=== PATIENT | female | born 1945 | race Caucasian/White ===

== ENCOUNTER 2016-05-14 17:40 | Emergency (ER) | payer MEDICARE, OTHER, MEDICAID ==
[~2016-05-14] VITALS: Ht 157.5 cm; Wt 90.9 kg
[~2016-05-14 17:40] MED LIST: ASPIRIN E.C. 8181 MG PO; DETROL 2MG TAB2 MG PO; GLUCOPHAGE500 MG/TAB PO; KEPPRA1000 MG PO; LIPITOR 10MG10 MG PO; MYRBETR25MG PO; NORCO 325 MG-51 TAB PO; NORVASC 10MG10 MG PO; PRAVACHOL 20MG20 MG PO; PRILOSEC 20MG20 MG PO; PRINIVIL10 MG PO; RESTORIL 1515 MG/CAP PO; VOLTAREN GEL 1%1 TU TP; ZESTRIL 20MG TA20 MG PO
[2016-05-14 17:44] VITALS: TEMP 97
[2016-05-14 18:29] LABS: HEMATOCRIT 38.2 % (37.0-47.0); HEMOGLOBIN 12.3 g/dl (12.5-16.0); MEAN CELL VOLUME 92 fl (80.0-100.0); MEAN CORPUSCULAR HEMOGLOBIN 30 pg (27.0-31.0); MEAN CORPUSCULAR HGB CONC 32 g/dl (33.0-37.0); PLATELET COUNT 397 K/mm3 (130-400); RED BLOOD COUNT 4.17 M/mm3 (4.10-5.30); REDCELL DISTRIBUTION WIDTH-CV 12.4 % (11.5-14.5); WHITE BLOOD COUNT 17.4 K/mm3 (4.8-10.8)
[2016-05-14 18:32] LABS: ADD PATHOLOGY DIFF REVIEW NO
[2016-05-14 18:44] LABS: BAND 9 % (0-10); EOSINOPHIL 1 % (0-4); NEUTROPHILS 36 % (42.0-75.2); PLATELET ESTIMATE NORMAL (NORMAL); TOTAL CELLS COUNTED 100
[2016-05-14 18:45] LABS: ADJUSTED CALCIUM 9.1 mg/dL (8.4-10.2); ALANINE AMINOTRANSFERASE 25 U/L (9-52); ALBUMIN 4.3 gm/dL (3.5-5.0); ALKALINE PHOSPHATASE 84 U/L (50-136); ANION GAP 17 mmol/L (7-16); BILIRUBIN,TOTAL 0.7 mg/dL (0.0-1.0); BLOOD UREA NITROGEN 12 mg/dL (7-17); CALCIUM 9.3 mg/dL (8.4-10.2); CARBON DIOXIDE 22 mmol/L (22-30); CHLORIDE 101 mmol/L (98-107); CREATININE, serum 1.06 mg/dL (0.52-1.25); GLUCOSE 139 mg/dL (74-106); LIPASE 76 U/L (23-300); POTASSIUM 3.6 mmol/L (3.4-5.0); SODIUM 140 mmol/L (137-145); TOTAL PROTEIN 7.8 gm/dL (6.4-8.2)
[2016-05-14 18:48] LABS: PH 7 (5-8); SQUAMOUS EPITHELIAL 0-2 /hpf; URINE APPEARANCE Clear; URINE BACTERIA Rare /hpf; URINE BILIRUBIN Negative (NEGATIVE); URINE BLOOD Negative (NEGATIVE); URINE COLOR Straw; URINE GLUCOSE Negative (NEGATIVE); URINE KETONE Trace (NEGATIVE); URINE RBC 0-2 /hpf; URINE UROBILINOGEN Negative (NEGATIVE); URINE WBC 0-2 /hpf
[2016-05-14 18:53] LABS: ACETAMINOPHEN < 10 ug/mL (10-30); SALICYLATE < 1.0 mg/dL
[2016-05-14 18:57] LABS: AMPHETAMINE URINE NEGATIVE; BARBITURATES URINE NEGATIVE; BENZODIAZEPINES URINE POSITIVE; BUPRENORPHINE URINE NEGATIVE; METHADONE URINE NEGATIVE; OPIATES URINE NEGATIVE; OXYCODONE URINE NEGATIVE; PHENCYCLIDINE URINE NEGATIVE; PROPOXYPHENE URINE NEGATIVE; THC CANNABINOIDS URINE NEGATIVE
[2016-05-14 18:58] LABS: TROPONIN-I < 0.012 ng/mL (0.000-0.034)
[2016-05-14 19:35] VITALS: BP 186/138; PULSE 84
== END 2016-05-14 19:35 | disposition short-term general hospital (02) ==
LOC: COL.ER 17:40
PROVIDERS: Emergency Medicine
DX: I61.1 Nontraumatic intracerebral hemorrhage in hemisphere, cortical (principal); G81.91 Hemiplegia, unspecified affecting right dominant side; R47.02 Dysphasia; I10 Essential (primary) hypertension; Z86.73 Personal history of transient ischemic attack (TIA), and cerebral infarction without residual deficits; E11.9 Type 2 diabetes mellitus without complications; I47.2 Ventricular tachycardia; Z79.84 Long term (current) use of oral hypoglycemic drugs
CPT/HCPCS: A4315; J0282; J0330; J0360; J2405; J2765; J7030; J7060